=== PATIENT | male | born 1945 | race Caucasian/White ===

== ENCOUNTER → 2016-05-31 | Outpatient (CLI) | payer OTHER ==
--- NOTE | 2016-05-31 17:03 | DX ---
Chest, PA and Lateral History: Right-sided crackles, heart failure Comparison: February 27, 2016 Findings: Increasing density in the right lower lung is consistent with right middle lobe and right l ower lobe consolidation with adjacent pleural effusion. The right upper lobe and left lung remain nor victorina aerated. It is difficult to cocktail waitress heart size due to the new obscuration of the right heart bord er by the right middle lobe consolidation. The pulmonary vascularity is chronically redistributed con sistent with pulmonary venous hypertension. A left chest wall auto defibrillator device and associate d four cardiac leads remain in place unchanged. Median sternotomy wires and CABG clips remain. Lung f indings remain moderately prominent. Ankylosis of the anterior longitudinal ligament is consistent wi th ankylosing spondylitis. Impression: Increasing right pleural effusion with adjacent consolidation. Cannot exclude an underlyi ng right middle or lower lobe pneumonia.
== END ==
LOC: FIMAGING 16:34
PROVIDERS: ATTEND Internal Medicine
DX: J90 Pleural effusion, not elsewhere classified (principal)

== ENCOUNTER 2016-08-08 10:31 | Day surgery (SDC) | payer OTHER ==
[2016-08-08] MEDS ORDERED: NS 1,000 ML IV ONE (10:39)
[2016-08-08] MEDS ORDERED: DIAZEPAM 5 MG TAB PO ONE (10:39)
[2016-08-08] MEDS ORDERED: FAMOTIDINE 20 MG TAB PO ONE (10:39)
[2016-08-08] MEDS ORDERED: ASPIRIN EC 325 MG TAB PO ONE (10:39)
[2016-08-08] MEDS ORDERED: diphenhydrAMINE 25 MG CAP PO ONE (10:39)
[2016-08-08 11:31] LABS: % IMMATURE GRANULYOCYTES 0.5 % (0.0-1.1); ABSOLUTE IMMATURE GRANULOCYTES 0.05 10^3/uL (0.00-0.10); ADD DIFF? NO; ADD MORPH? NO; ADD SCAN? NO; ATYPICAL LYMPHOCYTE FLAG 10 (0-99); FRAGMENT RBC FLAG 20 (0-99); HEMATOCRIT 40.7 % (40.0-51.0); LEFT SHIFT FLG 10 (0-99); LIPEMIA HEMOLYSIS FLAG 90 (0-99); MEAN CELL HEMOGLOBIN CONCENTR. 34.4 g/dL (32.4-36.7); MEAN CELL VOLUME 90.2 fL (81.5-99.8); MEAN PLATELET VOLUME 11.2 fL (8.7-11.7); PLATELET CLUMPS FLAG 0 (0-99); PLATELET COUNT 200 10^3/uL (150-400); RED BLOOD CELL COUNT 4.51 10^6/uL (4.40-6.38); RED CELL DISTRIBUTION WIDTH 15.8 % (11.5-15.2)
--- NOTE | 2016-08-08 11:32 | CPEKG ---
Heart Rate: 80 RR Interval: 750 P-R Interval: 158 QRSD Interval: 168 QT Interval: 492 QTC Interval: 568 P [place]: 0 QRS [place]: -60 T Wave [place]: 131 EKG Severity - ABNORMAL ECG - EKG Impression: VENTRICULAR-PACED COMPLEXES EKG Impression: IVCD, CONSIDER ATYPICAL RBBB EKG Impression: LVH WITH SECONDARY REPOLARIZATION ABNORMALITY Electronically Signed By: Gabriel Pressley 09-Aug-2016 14:21:34
[2016-08-08 11:39] LABS: INR 1.47 (0.83-1.16); PROTIME(PATIENT) 17.8 SEC (12.0-15.0)
[2016-08-08 11:47] LABS: ALANINE AMINOTRANSFERASE 28 IU/L (21-72); ALBUMIN 4.2 g/dL (3.5-5.0); ALKALINE PHOSPHATASE 193 IU/L (38-126); ANION GAP 15 mEq/L (8-16); ASPARTATE AMINOTRANSFERASE 20 IU/L (17-59); BILIRUBIN,TOTAL 2.3 mg/dL (0.1-1.4); CALCIUM 9.7 mg/dL (8.5-10.4); CARBON DIOXIDE 23 mEq/l (22-31); CHLORIDE 102 mEq/L (97-110); CHOLESTEROL 77 mg/dL (140-220); CHOLESTEROL/HDL RATIO 2.33 RATIO (1.00-4.97); CREATININE 1.6 mg/dL (0.7-1.3); GLOMERULAR FILTRATION RATE 43; GLUCOSE 109 mg/dL (70-100); HIGH DENSITY LIPOPROTEIN 33 mg/dL (40-65); LOW DENSITY LIPOPROTEIN 33 mg/dL (80-100); MAGNESIUM 2.6 mg/dL (1.6-2.3); NON-HIGH DENSITY LIPOPROTEIN 44 mg/dL (90-129); POTASSIUM 3.9 mEq/L (3.5-5.2); SODIUM 140 mEq/L (134-144); TOTAL PROTEIN 6.8 g/dL (6.3-8.2); TRIGLYCERIDE 58 mg/dL (40-150); URIC ACID 7.3 mg/dL (3.5-8.5); VERY LOW DENSITY LIPOPROTEINS 11 mg/dL (8-25)
[2016-08-08] MEDS ORDERED: LIDOCAINE 1% 30 ML SDV ONE (11:55)
[2016-08-08] MEDS ORDERED: MIDAZOLAM 2 MG/2 ML VIAL ONE (11:55)
[2016-08-08] MEDS ORDERED: fentaNYL 100 MCG/2 ML INJ ONE (11:55)
[2016-08-08 12:32] LABS: BILIRUBIN-CONJUGATED 1.5 mg/dL (0.0-0.5); BILIRUBIN-UNCONJUGATED 0.8 mg/dL (0.0-1.1)
--- NOTE | 2016-08-08 13:52 | PDDXCAT ---
Diagnostic Cath Note - . Date: 08/08/16 [employer]: White Indication: other (Congestive heart failure, recurrent episodes of dyspnea.) - Procedure Procedure: right heart catheterization - Materials Right Heart Cath size: 5F Right Heart Cath materials: PWP catheter - Findings-Right Heart Catheterization RA: 7 mmHg. RV: 54/5/10 mmHg. PA: 49/23/34 mmHg. Pulmonary artery saturation of 61.7%. PAOP: 14 mmHg, A-wave of 15 mmHg and V-wave of 16 mmHg. CO: 5.02 liters/minute. CI: 2.50 liters/minute per meter squared. Complications: None. Estimated blood loss: <50ml Closure method: manual pressure Assessment: Well compensated right heart hemodynamics. Plan: He will be seen in the CHF clinic with Dr. Marshall for further management. Patient Problems: Problems Problem Status Onset Atrial fibrillation and flutter Active Cardiac defibrillator in situ Active Cardiomyopathy Active Chronic Disease Management/Transitional Care Program Active Acute hyperkalemia Acute Anemia due to acute blood loss Acute Cellulitis and abscess of leg Acute Elevated troponin I level Acute Oral bleeding Acute
--- NOTE | 2016-08-08 16:13 | ECHO ---
[id number] + + [address] : : [place] [address] : : [phone] + + Adult Echocardiographic Report + + :Name: MIGUEL MORENO EStudy Date: 08/08/2016 02:39 PM : : Hospital Admission Number: [id number] Loc ation: CVC: :: 1945 Gender: Male Height: 68 in : :Age: 70 yrs Race: WH,White Weight: 188 lb : :Reason For Study: Eval LV Fx : : BSA: 2.0 me ters2 : :History: Post Cath : + + MMode/2D Measurements \T\ Calculations IVSd: 0.76 cm LVIDd: 6.5 cm FS: 15.5 % Ao root diam: LVPWd: 0.90 cm LVIDs: 5.5 cm EDV(Teich): 3.9 cm 215.5 ml ACS: 2.2 cm ESV(Teich): LA dimension: 146.7 ml 5.3 cm EF(Teich): 31.9 % LVLd ap4: 8.4 cm SV(MOD-sp4): EDV(MOD-sp4): 51.0 ml 176.0 ml LVLs ap4: 8.5 cm ESV(MOD-sp4): 125.0 ml EF(MOD-sp4): 29.0 % Normal Measurement Values: + + :LVIDd (3.5-5.7cm) IVSd (0.6-1.1cm) LVPWd (0.6-1.1cm) Aortic Root (2.0-3.7cm)Left Atrium (1.5-4.0cm): :LV Vol(d) (76-115ml) LV Vol(s) (29-48ml) Ejec Fraction (50-65%)PV Josiah (0.6- 1.2m/s) TV Josiah (0.4-1.0m/s) : :MV E Josiah (0.8-1.0m/s)MV A Josiah (0.3-1.0m/s)LVOT Josiah (0.7-1.2m/s) Asc Ao Josiah ( 0.9-1.8m/s) : + + Doppler Measurements \T\ Calculations MV E max josiah: Ao V2 max: LV V1 max: PA V2 max: 99.2 cm/sec 99.9 cm/sec 65.2 cm/sec 69.5 cm/sec Ao max PG: LV V1 max PG: PA max P.0 mmHg 1.7 mmHg 1.9 mmHg TR max josiah: 339.9 cm/sec TR max P.2 mmHg RAP systole: 5.0 mmHg RVSP(TR): 51.2 mmHg Left Ventricle The left ventricle is mildly dilated. There is normal left ventricular wall thickness. Ejection Fraction = 30-35%. There is Doppler evidence for diastolic dysfunction. Right Ventricle There is a pacemaker lead in the right ventricle. The right ventricle is moderately dilated. Atria The left atrium is severely dilated. The right atrium is severely dilated. Mitral Valve The mitral valve is normal. There is no mitral valve stenosis. There is mild to moderate mitral regurgitation. Tricuspid Valve There is mild to moderate tricuspid regurgitation. Right ventricular systolic pressure is 52mmHg. There is Doppler evidence for moderate pulmonary hypertension. Aortic Valve The aortic valve is trileaflet. The aortic valve opens well. There is no aortic stenosis. Mild aortic regurgitation. Pulmonic Valve The pulmonic valve is normal in structure and function. Great Vessels The aortic root is normal size. Pericardium/Pleural There is no pericardial effusion. Conclusion A complete two-dimensional transthoracic echocardiogram was performed (2D, M-mode, Doppler and color flow Doppler). A complete two-dimensional transthoracic echocardiogram was performed (2D, M-mode, Doppler and color flow Doppler). The left ventricle is mildly dilated. Ejection Fraction = 30-35%. Severe global hypominesis. There is Doppler evidence for diastolic dysfunction. There is a pacemaker lead in the right ventricle. The left atrium is severely dilated. The right atrium is severely dilated. The mitral valve is normal. Mild to moderate mitral regurgitation. There is mild to moderate tricuspid regurgitation. Right ventricular systolic pressure is 52mmHg. The aortic valve is trileaflet. Mild aortic regurgitation. There is no pericardial effusion. Compared to a prior study from 02/2014 there has been an improvement in the degree of MR and TR. EF is unchanged. Final Reading Physician: Sanjiv Amador signed on 08/08/2016 04:12 PM Ordering Physician: Temo Pantoja Performed By: Wilfrido Hurtado, RADHACS
== END 2016-08-08 15:30 | disposition home or self-care (01) ==
LOC: FCATH 10:31
PROVIDERS: ATTEND Internal Medicine Cardiovascular Disease
DX: I50.23 Acute on chronic systolic (congestive) heart failure (principal); I25.10 Atherosclerotic heart disease of native coronary artery without angina pectoris; I48.91 Unspecified atrial fibrillation; Z95.1 Presence of aortocoronary bypass graft; Z95.810 Presence of automatic (implantable) cardiac defibrillator
CPT/HCPCS: J1644; J2250; J3010

== ENCOUNTER → 2016-08-23 | Outpatient (CLI) | payer OTHER ==
[~2016-08-23] MED LIST: LIDOCAINE 1% 30 ML SDV ONE; NA BICARBONATE 50 MEQ/50 ML VIAL ONE
[2016-08-23 16:08] LABS: LD, PLEURAL FLUID 609 IU/L
== END ==
LOC: FIMAGING 10:56
PROVIDERS: ATTEND Internal Medicine
PROC: 0W9G3ZX Drainage of Peritoneal Cavity, Percutaneous Approach, Diagnostic (ICD-10-PCS; principal; 2016-08-23)
PROC: 0W993ZX Drainage of Right Pleural Cavity, Percutaneous Approach, Diagnostic (ICD-10-PCS; principal; 2016-08-23)
DX: R18.8 Other ascites (principal)

== ENCOUNTER → 2016-08-29 | Outpatient (CLI) | payer OTHER | LOC: BHFA 15:30 | PROVIDERS: ATTEND Internal Medicine Cardiovascular Disease | DX: I48.91 Unspecified atrial fibrillation (principal); Z95.0 Presence of cardiac pacemaker; I25.10 Atherosclerotic heart disease of native coronary artery without angina pectoris ==

== ENCOUNTER → 2016-09-25 | Outpatient (CLI) | payer OTHER | LOC: FLAB 10:33 | PROVIDERS: ATTEND Internal Medicine | DX: J90 Pleural effusion, not elsewhere classified (principal); R91.8 Other nonspecific abnormal finding of lung field ==

== ENCOUNTER → 2016-11-22 | Outpatient (CLI) | payer OTHER | LOC: FIMAGING 09:43 → EDSTATUS 09:44 | PROVIDERS: ATTEND Internal Medicine Pulmonary Disease | DX: J90 Pleural effusion, not elsewhere classified (principal); J98.11 Atelectasis ==

== ENCOUNTER → 2016-11-28 | Outpatient (CLI) | payer OTHER | LOC: BHFA 15:00 | PROVIDERS: ATTEND Internal Medicine Cardiovascular Disease | DX: I25.810 Atherosclerosis of coronary artery bypass graft(s) without angina pectoris (principal); I50.23 Acute on chronic systolic (congestive) heart failure; N18.9 Chronic kidney disease, unspecified; R06.02 Shortness of breath; R18.8 Other ascites ==

== ENCOUNTER → 2017-01-22 | Outpatient (CLI) | payer OTHER ==
[~2017-01-22] MED LIST changes: -LIDOCAINE 1% 30 ML SDV ONE; +LIDOCAINE 1% 300 MG/30 ML SDV ONE; -NA BICARBONATE 50 MEQ/50 ML VIAL ONE
== END ==
LOC: FIMAGING 11:32
PROVIDERS: ATTEND Internal Medicine
PROC: 0W9G3ZX Drainage of Peritoneal Cavity, Percutaneous Approach, Diagnostic (ICD-10-PCS; principal; 2017-01-22)
DX: R18.8 Other ascites (principal)

== ENCOUNTER → 2017-05-15 | Outpatient (CLI) | payer OTHER | LOC: FIMAGING 08:23 | PROVIDERS: ATTEND Internal Medicine | DX: K74.69 Other cirrhosis of liver (principal) ==

== ENCOUNTER 2017-07-10 16:57 | Emergency (ER) | payer OTHER ==
[2017-07-10] MEDS ORDERED: LIDOCAINE HCL 4% TOPICAL SOLN 50ML ONE (17:34)
[2017-07-10] MEDS ORDERED: SILVER NITRATE APPLICATOR 1 APPL TP ONE ×2 (17:34→17:58)
[2017-07-10] MEDS ORDERED: OXYMETAZOLINE 30 ML NASAL SPRAY ONE (17:34)
--- NOTE | 2017-07-10 18:08 | EDPHY ---
H & P Time Seen by Provider: 07/10/17 17:22 HPI/ROS: CHIEF COMPLAINT: Epistaxis HISTORY OF PRESENT ILLNESS: 71-year-old male presents to the emergency department with epistaxis that began earlier this morning. Patient states that he has been dealing with this intermittently throughout the day just from the right side of his nose. Denies any known trauma or injury. He is on Pradaxa. ROS: He denies dysphagia. Denies congestion or fever Past Medical/Surgical History: Atrial fibrillation on Pradaxa Social History: Smoking Status: Never smoked Physical Exam: On examination the patient has bleeding noted from the right anterior nasal septum overlying Kiesselbach's plexus. The left nostril is clear. There is no blood in the posterior pharynx. Constitutional: Initial Vital Signs Heart Rate 75 07/10/17 17:01 Respiratory Rate 18 07/10/17 17:01 Blood Pressure 101/66 07/10/17 17:01 O2 Sat (%) 98 07/10/17 17:01 O2 Delivery Mode Nasal Cannula Allergies/Adverse Reactions: chlorpheniramine [From Codeine Antitussive Cough] Allergy (Severe, Verified 17:01) GI UPSET phenylephrine HCl [From Codeine Antitussive Cough] Allergy (Severe, Verified 17:01) Other-Enter Comments furosemide [From Lasix] Allergy (Intermediate, Verified 07/10/17 17:01) Rash codeine [From Codeine Antitussive Cough] Allergy (Mild, Verified 07/10/17 17:01) Other-Enter Comments levofloxacin [From Levaquin] Allergy (Verified 07/10/17 17:01) Itching Home Medications: Medication Instructions Recorded Allopurinol [Allopurinol 300 MG 300 mg PO DAILY 03/04/15 (RX)] Dofetilide [Tikosyn] 125 mcg PO BID 03/04/15 Gemfibrozil [Lopid 600 MG (*)] 600 mg PO BIDAC 03/04/15 Carvedilol [Coreg (*)] 3.125 mg PO BIDMEAL #0 tab 03/07/15 Dabigatran Etexilate Mesylate 75 mg PO BID 02/01/16 [Pradaxa] Multivitamins [Multivitamin (*)] 1 each PO DAILY 02/01/16 Goff-3 Fatty Acids/Fish Oil [Fish 1 each PO DAILY@12 02/01/16 Oil 1,000 mg Capsule] Acetaminophen [Tylenol 325mg (*)] 650 mg PO Q4HRS PRN #0 tab 02/04/16 Torsemide [Demadex] 20 mg PO DAILY@13 08/08/16 Torsemide [Demadex] 80 mg PO DAILY@08/08/16 MDM/Departure - MDM Procedures: Procedure: Epistaxis control. After verbal consent was obtained, the patient was anesthetized with 4% topical lidocaine and Afrin. The anterior epistaxis was identified. The patient was treated with silver nitrate to the right nostril at Kiesselbach's plexus. Following the procedure the patient was re-examined and the bleeding was well controlled. The patient tolerated the procedure well. The procedure was performed by myself. ED Course/Re-evaluation: 71-year-old male presents to the emergency department with epistaxis. His right anterior septum was cauterized, see procedure note. The patient was observed for over 30 min and had no recurring bleeding. He felt comfortable being discharged home. - Depart Disposition: Home, Routine, Self-Care Clinical Impression: Acute anterior epistaxis Condition: Good Instructions: Nosebleed (ED) Additional Instructions: Add a humidifier to your room as discussed. Use nasal lubricant or Vaseline every night to prevent further nose bleeds. Please do not blow your nose, pick or rub your nose for at least 48 hr. Referrals: Jabier George MD [Medical Doctor] - 2-3 days, if not improved (ENT on-call)
[2017-07-10 18:24] VITALS: BP 155/79; PULSE 85; RESP 19; TEMP 97.5; O2SAT 91
== END 2017-07-10 18:26 | disposition home or self-care (01) ==
PROC: 3E09XTZ Introduction of Destructive Agent into Nose, External Approach (ICD-10-PCS; principal; 2017-07-10)
DX: R04.0 Epistaxis (principal)

== ENCOUNTER → 2017-08-07 | Outpatient (CLI) | payer OTHER ==
[~2017-08-07] MED LIST changes: +ALBUMIN 25% 100 ML SOLN IV ONE
== END ==
LOC: FIMAGING 11:03
PROVIDERS: ATTEND Radiology Diagnostic Radiology
PROC: 0W9G3ZZ Drainage of Peritoneal Cavity, Percutaneous Approach (ICD-10-PCS; principal; 2017-08-07)
PROC: BW40ZZZ Ultrasonography of Abdomen (ICD-10-PCS; principal; 2017-08-07)
DX: R18.8 Other ascites (principal)
CPT/HCPCS: 49083; 88104; 88112; 88305; P9047

== ENCOUNTER → 2017-09-18 | Outpatient (CLI) | payer OTHER | LOC: FIMAGING 11:16 | PROVIDERS: ATTEND Internal Medicine | PROC: 0W9F3ZZ Drainage of Abdominal Wall, Percutaneous Approach (ICD-10-PCS; principal; 2017-09-18) | DX: R18.8 Other ascites (principal); K74.60 Unspecified cirrhosis of liver | CPT/HCPCS: 49083; 71045; P9047 ==

== ENCOUNTER → 2017-12-30 | Outpatient (CLI) | payer OTHER ==
[~2017-12-30] MED LIST changes: -ALBUMIN 25% 100 ML SOLN IV ONE
== END ==
LOC: FIMAGING 09:55
PROVIDERS: ATTEND Family Medicine
PROC: 0W9G30Z Drainage of Peritoneal Cavity with Drainage Device, Percutaneous Approach (ICD-10-PCS; principal; 2017-12-30)
DX: R18.8 Other ascites (principal); I50.22 Chronic systolic (congestive) heart failure

== ENCOUNTER → 2018-02-24 | Outpatient (CLI) | payer OTHER | LOC: FIMAGING 07:56 | PROVIDERS: ATTEND Family Medicine | PROC: 0W9F3ZZ Drainage of Abdominal Wall, Percutaneous Approach (ICD-10-PCS; principal; 2018-02-24) | DX: R18.8 Other ascites (principal) ==

== ENCOUNTER → 2018-03-25 | Outpatient (CLI) | payer OTHER ==
[~2018-03-25] MED LIST changes: +ALBUMIN 25% 100 ML SOLN IV ONE
== END ==
LOC: FIMAGING 11:31
PROC: 0W9F3ZZ Drainage of Abdominal Wall, Percutaneous Approach (ICD-10-PCS; principal; 2018-03-25)
DX: R18.8 Other ascites (principal); R14.0 Abdominal distension (gaseous); I50.20 Unspecified systolic (congestive) heart failure
CPT/HCPCS: P9047

== ENCOUNTER → 2018-04-18 | Outpatient (CLI) | payer OTHER ==
[~2018-04-18] MED LIST changes: -ALBUMIN 25% 100 ML SOLN IV ONE; +ALBUMIN 25% 50 ML SOLN IV ONE
== END ==
LOC: FIMAGING 09:12
PROVIDERS: ATTEND Internal Medicine Hospice and Palliative Medicine
PROC: 0D9W3ZZ Drainage of Peritoneum, Percutaneous Approach (ICD-10-PCS; principal; 2018-04-18)
DX: R18.8 Other ascites (principal)
CPT/HCPCS: P9047